=== PATIENT | male | born 1955 | race Two or more races ===

== ENCOUNTER 2020-04-19 16:50 | Emergency (ER) | payer MEDICAID ==
[~2020-04-19] VITALS: Ht 170.2 cm; Wt 72.6 kg
[~2020-04-19 16:50] MED LIST: FURO20TA3 PO; LACT10SO3 PO; PANT40T PO; PROP60CA34 PO; SPIR25TA8 PO
[2020-04-19] MEDS ORDERED: DEXTROSE (50%) 50ML SYRG IV ONE (16:51)
[2020-04-19] MEDS ORDERED: AMIODARONE HCL (50 MG/ ML) 3 ML VIAL IV ONE (16:51)
[2020-04-19] MEDS ORDERED: SODIUM BICARBONATE 8.4% INJ 50ML SYRINGE IV ONE (16:51)
[2020-04-19] MEDS ORDERED: EPINEPHrine HCL 1 MG/10 ML SYRG IV ONE (16:51)
[2020-04-19] MEDS ORDERED: CALCIUM CHLOR(10%) 100MG/ML 10ML SYRINGE IV ONE (16:51)
[2020-04-19] MEDS ORDERED: ATROPINE SULF 1 MG/10ml SYR IV ONE (16:51)
[2020-04-19] MEDS ORDERED: SODIUM CHLORIDE 0.9% 500 ML IVB ONE (17:30)
[2020-04-19] MEDS ORDERED: SODIUM CHLORIDE 0.9% 1,000 ML IV ONE (17:30)
[2020-04-19] MEDS ORDERED: NOREPINEPHRINE 8 MG/250ML KIT 250 ML IV SCH (18:00)
[2020-04-19] MEDS ORDERED: ALBUMIN 25% 100 ML IV ONE (18:15)
[2020-04-19 19:40] VITALS: BP 89/17
[2020-04-19] MEDS ORDERED: DexAMETHasone SOD PHOS 10MG/1ML VIAL INJ ONE (19:46)
[2020-04-19] MEDS ORDERED: SODIUM BICARBONATE 8.4% INJ 50ML SYRINGE ONE (19:47)
[2020-04-19] MEDS ORDERED: EPINEPHrine HCL 250 ML IV ONE (19:52)
[2020-04-19] MEDS ORDERED: EPINEPHrine HCL 1 MG/10 ML SYRG ONE (19:53)
[2020-04-19 20:06] LABS: Albumin 1.5 g/dL (3.4-5.0); BUN/Creatinine Ratio 17.2; Calcium 8.1 mg/dL (8.5-10.1)
[2020-04-19 20:12] LABS: Lactic Acid w/Reflex 12.5 mmol/L (0.4-2.0)
[2020-04-19 20:16] LABS: Bilirubin, Total 5.6 mg/dL (0.2-1.0); Total Protein 5.2 g/dL (6.4-8.2)
[2020-04-19 20:23] LABS: Potassium 5.9 mmol/L (3.5-5.1)
== END 2020-04-19 19:55 | disposition expired ==
LOC: ER 16:50 → EDBD 16:50 → ER 19:55
DX: I46.9 Cardiac arrest, cause unspecified (principal); K70.31 Alcoholic cirrhosis of liver with ascites; K72.10 Chronic hepatic failure without coma; E11.9 Type 2 diabetes mellitus without complications; K21.9 Gastro-esophageal reflux disease without esophagitis; I10 Essential (primary) hypertension; Z79.899 Other long term (current) drug therapy
CPT/HCPCS: 31500; 36415; 71045; 80053; 82140; 83605; 84484; 92950; 96361; 96365; 99291; J0171; J0282; J1100; J7042; P9047; 96360